=== PATIENT | male | born 1995 | race Two or more races ===

== ENCOUNTER 2018-12-08 04:04 | Inpatient (IN) | payer MEDICAID ==
[~2018-12-08] VITALS: Ht 177.8 cm; Wt 70.8 kg
[2018-12-08 04:15] VITALS: Ht 177.8 cm; Wt 70.8 kg
[2018-12-08 07:04] LABS: PLATELET COUNT 261 x10^3mcL (130-400); RED CELL DISTRIBUTION WIDTH 13.8 % (11.5-14.5)
[2018-12-08 07:51] LABS: CALCIUM 9.2 mg/dL (8.5-10.1); CARBON DIOXIDE 29.5 mmol/L (21-32); CHLORIDE SERUM 101 mmol/L (98-107); CREATININE SERUM 0.9 mg/dL (0.7-1.3); GFR1 > 60 mL/min; GLUCOSE SERUM 104 mg/dL (74-106); POTASSIUM SERUM 4.6 mmol/L (3.5-5.1); SODIUM SERUM 140 mmol/L (136-145)
[2018-12-08 07:54] LABS: ALBUMIN 4.1 g/dL (3.4-5.0); ALKALINE PHOSPHATASE 50 U/L (46-116); ALT/SGPT 14 U/L (16-63); AST/SGOT 11 U/L (15-37); BILIRUBIN TOTAL 0.88 mg/dL (0.20-1.00); C REACTIVE PROTEIN 9.5 mg/dL (<=0.9); TOTAL PROTEIN, SERUM 7.9 g/dL (6.4-8.2)
[2018-12-08 08:23] LABS: CK-MB < 0.5 ng/mL (0-3.6); CREATINE KINASE 61 U/L (39-308)
[2018-12-08 09:17] LABS: microscopic required? NO
[2018-12-08] MEDS ORDERED: NOR10T PO (11:26)
[2018-12-08 11:31] LABS: UA SPECIFIC GRAVITY <=1.005 (1.005-1.035); urine erythrocyte NEGATIVE (NEGATIVE)
[2018-12-08 12:22] LABS: BAND NEUTROPHIL 1 % (0-10); BASOPHIL 0 % (0-2); MONOCYTE 5 % (0-7); SEGMENTED NEUTROPHILS 88 % (37-75); rbc morphology (normal/abnorm) ABNORMAL (NORMAL)
[2018-12-08 12:23] LABS: PLATELET MORPHOLOGY PLATELETS NORMAL
[2018-12-08 13:21] VITALS: BP 95/54
[2018-12-08 13:34] LABS: ERYTHROCYTE SED RATE 12 mm/hr (0-15)
[2018-12-08 16:44] VITALS: BP 100/42
[2018-12-08 21:18] VITALS: BP 108/59
[2018-12-09 05:18] VITALS: BP 111/56
[2018-12-09 06:14] LABS: BASOPHIL % 0.1 % (0-2); PLATELET COUNT 217 x10^3mcL (130-400); RED CELL DISTRIBUTION WIDTH 14.1 % (11.5-14.5)
[2018-12-09 06:21] LABS: CALCIUM 8.6 mg/dL (8.5-10.1); CARBON DIOXIDE 28.4 mmol/L (21-32); CHLORIDE SERUM 101 mmol/L (98-107); CREATININE SERUM 0.8 mg/dL (0.7-1.3); GFR1 > 60 mL/min; GLUCOSE SERUM 93 mg/dL (74-106); POTASSIUM SERUM 4.1 mmol/L (3.5-5.1); SODIUM SERUM 137 mmol/L (136-145)
[2018-12-09 09:47] VITALS: BP 110/59
[2018-12-09 13:12] VITALS: BP 110/68
[2018-12-09 17:25] VITALS: BP 116/66
[2018-12-09 21:00] VITALS: BP 111/55
[2018-12-10 05:27] VITALS: BP 103/49
[2018-12-10] MEDS ORDERED: AMOXICILLIN500 MG PO (09:27)
[2018-12-10 09:43] VITALS: BP 132/66
[2018-12-10 10:33] VITALS: BP 132/66
[2018-12-10 13:51] VITALS: BP 124/55
== END 2018-12-10 17:15 | disposition home or self-care (01) | DRG 720 ==
LOC: ED 04:04 → DU 11:18
PROVIDERS: Specialist; ADMIT Internal Medicine
DX: A41.9 Sepsis, unspecified organism (principal); E87.2 Acidosis; K12.2 Cellulitis and abscess of mouth
CPT/HCPCS: J1885; J2270; J2405; J2543; J3010; J3370; J7030; Q9967

== ENCOUNTER 2019-06-19 00:42 | Emergency (ER) | payer MEDICAID ==
[~2019-06-19] VITALS: Ht 175.3 cm; Wt 71.7 kg
[~2019-06-19 00:42] MED LIST: AMOXICILLIN500 MG PO; NOR10T PO
[2019-06-19 00:48] VITALS: Ht 175.3 cm; Wt 71.7 kg
[2019-06-19 02:22] VITALS: BP 123/71
== END 2019-06-19 02:22 | disposition home or self-care (01) ==
LOC: ED 00:42
DX: S92.355A Nondisplaced fracture of fifth metatarsal bone, left foot, initial encounter for closed fracture (principal); X50.1XXA Overexertion from prolonged static or awkward postures, initial encounter; Y93.89 Activity, other specified; Y92.89 Other specified places as the place of occurrence of the external cause; Y99.8 Other external cause status